=== PATIENT | male | born 1980 | race African-American/Black ===

== ENCOUNTER 2024-05-26 08:43 | Emergency (ER) | payer MEDICAID ==
[~2024-05-26] VITALS: Ht 165.1 cm; Wt 58.0 kg
[2024-05-26 08:50] VITALS: TEMP 98.3; O2SAT 99
[2024-05-26 08:55] VITALS: O2SAT 98
[2024-05-26 09:30] VITALS: BP 158/95; PULSE 90; RESP 18
[2024-05-26] MEDS: KETOROLAC 30MG/ML VIAL IM ONE (09:30)
[2024-05-26] MEDS ORDERED: AMOX1TAB16 MT (10:18)
[2024-05-26] MEDS ORDERED: HYDR-4001 MT (10:23)
[2024-05-26] MEDS ORDERED: HYDR-4001 PO (11:42)
== END 2024-05-26 10:42 | disposition home or self-care (01) ==
LOC: ER 08:43
DX: K04.7 Periapical abscess without sinus (principal); R68.89 Other general symptoms and signs; F10.90 Alcohol use, unspecified, uncomplicated; F12.90 Cannabis use, unspecified, uncomplicated; Y90.9 Presence of alcohol in blood, level not specified
CPT/HCPCS: 99283; 96372; J1885